=== PATIENT | male | born 1950 | race Caucasian/White ===

== ENCOUNTER → 2016-07-03 | Outpatient (CLI) | payer OTHER ==
--- NOTE | 2016-07-03 16:28 | DI ---
INDICATION: ITS.REASON: DX TESTING PROCEDURE: CHEST 2-VIEWS UPRIGHT (PA \T\ LAT) Encounter: Initial COMPARISON: None FINDINGS: The lungs are clear without evidence of focal abnormal airspace opacity. There is no pleural effusion or pneumothorax. Eventration of the right hemidiaphragm noted incidentally. The heart size, mediastinal contours and pulmonary vascularity are within normal limits. There is no significant skeletal abnormality. IMPRESSION: No acute cardiopulmonary disease. .
== END ==
LOC: IMA 16:06
DX: Z02.9 Encounter for administrative examinations, unspecified (principal)